=== PATIENT | female | born 1950 | race Caucasian/White ===

== ENCOUNTER → 2018-08-14 07:10 | Day surgery (SDC) | payer MEDICARE, BC ==
--- NOTE | 2018-08-06 18:50 | HP ---
CC: Dr. Masha Interiano; Dr. Mariia Elias; Dr. Waqas Finney * ADMISSION HISTORY AND PHYSICAL: DATE OF ADMISSION: 08/14/18 ATTENDING SURGEON: Dr. Rica Fox.* (DICTATED BY MARCE MITCHELL) CHIEF COMPLAINT: Right breast cancer. HISTORY OF PRESENT ILLNESS: This is a 67-year-old female who underwent screening mammography on 06/25/18. Prior to that study, she had not noted any changes in either breast on self-exam. She specifically denied any nipple discharge, bloody or otherwise. She has not had any prior breast biopsies. The mammogram showed multiple microcalcifications bilaterally with progression from her previous mammogram of 2011. In addition, there was an area of architectural distortion in the anterior right breast approximately 2 cm superior to the nipple. This was confirmed by ultrasound on that same date, showing a hypoechoic mass measuring 0.7 x 0.8 x 0.6 cm with irregular shadowing and margins and suspicious for malignancy. 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 Additional staining confirmed this to be a predominately lobular carcinoma which was ER and MN positive and HER2/eri negative. Because of lobular differentiation, she underwent MRI on 07/29/18 showing the aforementioned spiculated lesion in the right breast, but also a second lesion measuring 0.4 cm and located 3.2 cm posterior to the biopsied lesion. It was felt most likely consistent with an intramammary lymph node. However, after discussion between Dr. Fox and the radiologist, the plan will be to have the needle localization wire placed between the 2 lesions with the plan to remove both at the time of surgery. Dr. Fox did see the patient on 07/16/18. Her other breast history is noted in her chart record. There is no known family history of breast or ovarian cancer, but it is positive for pancreatic cancer. Dr. Fox's exam revealed symmetrical breasts with a large bruise in the superior right breast, but without any discrete masses palpable in either breast. Skin and nipples were otherwise normal and there was no palpable cervical, supraclavicular, or axillary lymphadenopathy. Dr. Fox has discussed with her the indications for surgery, the risks, benefits, and alternatives, and she would like to proceed as scheduled with wide local excision (as noted above) of right breast cancer (following needle localization) . She will also undergo sentinel lymph node biopsy. PAST MEDICAL HISTORY: GERD, depression, osteoarthritis, rhinitis. PAST SURGICAL HISTORY: Previous surgeries include LAUREN with BSO for benign indications (bladder prolapse), removal of a right knee osteochondroma. Her episodes with general anesthesia have been characterized by significant postoperative nausea and vomiting. CURRENT MEDICATIONS: 1. Omeprazole 20 mg once daily. 2. Atrovent 0.03% two sprays each nostril b.i.d. 3. Fluoxetine 60 mg once daily. 4. Bupropion XL 150 mg 3 tablets q.a.m. 5. Excedrin Migraine p.r.n. for headaches (the patient was recently switched to non-aspirin variety). DRUG ALLERGIES: None known (nausea and vomiting from narcotics and general anesthesia). FAMILY HISTORY: Negative for anesthesia problems, bleeding, or clotting disorders. SOCIAL HISTORY: The patient is . She has 1 daughter who is in the middle of her first year of medical school. 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 She denies use of tobacco. She drinks on an average 5 to 6 drinks per week and smokes marijuana occasionally, but not daily. REVIEW OF SYSTEMS: General: No recent constitutional symptoms or acute illnesses. Weight has been stable. HEENT: No problems reported. Cardiovascular: No chest pain, palpitations, history of hypertension, or murmur. Respiratory: No history of asthma, chronic cough, or shortness of breath. GI: GERD, well controlled. No other problems reported. Colonoscopy done most recently 2013 with removal of benign polyps. The patient was unsure about recommended followup, but no significant interval symptoms. : No problems reported. REAL ESTATE INTERN: No current symptoms. Her last Pap smear and pelvic exam were approximately 2011. Endocrine: No diabetes or thyroid dysfunction. Remainder of review of systems is negative. PHYSICAL EXAMINATION GENERAL: Well-nourished, well-developed female, in no acute distress. VITAL SIGNS: Height 72.75 inches, weight 182 pounds. Blood pressure 124/78, pulse 78, respirations 18. HEENT: Pupils are equal, round, and reactive. EOMs intact. No conjunctival pallor. Oropharynx, teeth in good repair. No intraoral lesions. NECK: No lymphadenopathy, thyromegaly, or masses. LUNGS: Clear to auscultation. No rales or wheezes. HEART: Regular rate and rhythm. No murmur noted. BREASTS: As per Dr. Fox's exam, not repeated today. ABDOMEN: Soft, nontender to palpation. No palpable masses or organomegaly. GENITALIA: Not done. RECTAL: Not done. BACK: No spinous process or CVA tenderness. EXTREMITIES: No edema. NEUROLOGICAL: Grossly intact. SKIN: Warm and dry. No suspicious rashes or lesions. IMPRESSION: Right breast cancer. PLAN: Wide-excision right breast cancer following needle localization; sentinel lymph node biopsy. MARCE MITCHELL [id number]/[facility] #: [id number] MARLO
[~2018-08-14 07:10] MED LIST: Buffered Lidocaine 1% SYRIN* 1 ML/SYRINGE INTRADERM ONE; Bupivacaine 0.5% W/EPI SDV* 30 ML VIAL ONE; Dexamethasone IV* 4 MG/ML 1 ML (4 MG) IV SLOW PU ONE; Dexamethasone IV* 4 MG/ML 1 ML (4 MG) ONE; DiMENhydriNATE IV* 50 MG/ML VIAL IV PUSH PRN; Famotidine IV* 10 MG/ML 2 ML (20 mg) IV ONE; Famotidine IV* 10 MG/ML 2 ML (20 mg) ONE; Lactated Ringers 1000 ML Bag* 1,000 ML IV SCH; Lidocaine 1% INJ* 10 MG/ML 30 ML SDV ONE; Lidocaine 2% PF * 5 ML VIAL ONE; Lidocaine 2.5%/Prilocain 2.5%* 5 GM TUBE ONE; Midazolam* 1 MG/ML 2 ML VIAL (2 MG) ONE; Midazolam* 1 MG/ML 5 ML VIAL (5 MG) ONE; Naloxone* 0.4 MG/ML 1 ML VIAL IV PRN; Ondansetron INJ* 2 MG/ML VIAL IV PRN; Ondansetron INJ* 2 MG/ML VIAL ONE; Propofol* 10 MG/ML 20 ML BTL ONE; Scopolamine 1.5 mg* PATCH TRANSDERM PRN; ceFAZolin 2 GM PREMIX in ORs 2 GM/50 ML BAG IVPB ONE; fentaNYL* 50 MCG/ML 2 ML VIAL (100 MCG VIAL) IV PRN; fentaNYL* 50 MCG/ML 2 ML VIAL (100 MCG VIAL) ONE; oxyCODONE/Acetamin 5/325 MG* TAB PO PRN
--- NOTE | 2018-08-14 14:43 | BRIEFOPN ---
Brief Operative Note - Surgery Procedures: Procedures ENDOSC POLYPECTOMY OF LG INTEST (03/30/14) LEG VARICOS V LIGA-STRIP (05/27/14) LID RECONSTRUCTION NOS (09/08/08) OCCLUDE LEG VEIN NEC (05/27/14) 08/14/18 Op Note Pre-op dx: right breast cancer Post-op dx: same procedure: needle localization excision of right breast cancer and sentinel lymph node biopsy surgeon: Ruddy Asst: none Anesth: local-MAC EBL: 5 cc Complications: none SCDs on during surgery Abx: given pre-op Pt. tolerated procedure well and was transferred to in a stable condition. CLFoster
[2018-08-14 15:49] VITALS: BP 127/80
--- NOTE | 2018-08-14 22:59 | OP ---
CC: [facility] * DATE OF OPERATION: 08/14/18 - [facility] DATE OF : 50 SURGEON: Rica Fox MD. CREDIT CONTROL CLERK: There was no certified physician assistant for this care. PRE-OP DIAGNOSIS: Right breast cancer. POST-OP DIAGNOSIS: Right breast cancer. OPERATIVE PROCEDURE: Needle localization and excision of right breast cancer and sentinel lymph node biopsy. INDICATIONS: Ms. Hicks is a 67-year-old woman recently diagnosed with right breast cancer prompting the plan for surgical intervention. DESCRIPTION OF PROCEDURE: She underwent needle localization and sentinel lymph node localization without difficulty and was then brought to the operating room. She was placed on the OR table in the supine position and given IV sedation. The right breast was prepped and draped in the usual sterile fashion , taking care not to dislodge the localizing wire. Then after infiltrating with local anesthetic, a curvilinear incision was made between the 2 wires, one wire was localizing known cancer and the second wire was localizing the second nodule that had been identified on MRI. Subcutaneous tissue was divided with electrocautery to excise the mass of tissue around the tip of the wires. The each wire was brought through the skin into the open wound. The specimen was removed and marked in the usual fashion and handed off and then hemostasis was assured with electrocautery. Clips were placed in the cavity to beulah its complex and then closure was accomplished with 3-0 Vicryl in the subcutaneous layer and the skin was closed with 4-0 Prolene in a subcuticular fashion. Steri -strips and a dry sterile dressing were applied at the end of the case. Attention was then turned to the axilla. Using the navigator, the proximal location of the sentinel node was identified and then after infiltrating with local anesthetic, a curvilinear incision was made in the high axilla. Subcutaneous tissue was then divided with electrocautery down to the level of the axillary fat pad. Again, the navigator was used to identify the location of the sentinel node. It was dissected free using clips to control small lymphatic and blood vessels that approached the node. The in situ counts were around 1500, the ex vivo counts were around 1100, and the axillary bed counts were 7. It is confirmed that the sentinel node had been removed. Hemostasis was assured and then once this was adequate a closure was accomplished with 3-0 Vicryl in the subcutaneous layer and the skin was closed with 4-0 Prolene in the subcuticular fashion. Steri-strips and the dry sterile dressing were applied to this incision site as well. All sponge and instrument counts were correct. The patient tolerated the procedure well and was transferred to recovery in a stable condition. [id number]/[facility] #: [id number] [facility]
== END | disposition home or self-care (01) ==
LOC: OR 07:10
PROVIDERS: ATTEND Surgery
DX: C50.111 Malignant neoplasm of central portion of right female breast (principal); C77.3 Secondary and unspecified malignant neoplasm of axilla and upper limb lymph nodes; K21.9 Gastro-esophageal reflux disease without esophagitis; M19.90 Unspecified osteoarthritis, unspecified site; F32.9 Major depressive disorder, single episode, unspecified
CPT/HCPCS: 78195; 88307; 88341; 88342; A9270-GY; A9541; J0690; J1100; J2250; J2405; J2704; J3010